=== PATIENT | female | born 1960 | race Caucasian/White ===

== ENCOUNTER 2017-08-16 12:32 | Outpatient (CLI) | payer OTHER, MEDICAID ==
[~2017-08-16 12:32] MED LIST: CARB100T13 PO; CORCR20 PO; DICY10CA59 PO; DOCU250C PO; FIORICET PO; HYDR-1115 PO; HYDR4TAB26 PO; LISI10TA5 PO; LORA0.5T PO; ONDA4TAB5 PO; POLY17PO4 PO; POLY50DR OP; SENN8.8S12 PO; SIMV10TA2 PO; TIZA4TAB11 PO; TRAZ300T11 PO; VITD2000 PO
== END 2017-08-16 19:17 | disposition home or self-care (01) ==
LOC: SRD 12:32
PROVIDERS: ATTEND Specialist
DX: J90 Pleural effusion, not elsewhere classified (principal); M79.605 Pain in left leg
CPT/HCPCS: 71046-TC; 93971